=== PATIENT | female | born 2000 | race Caucasian/White ===

== ENCOUNTER 2019-04-06 13:35 | Outpatient (CLI) | payer OTHER ==
[2019-04-06 14:57] LABS: RUPTURE FETAL MEMBRANES NEGATIVE (NEGATIVE)
== END 2019-04-06 16:38 | disposition home or self-care (01) ==
LOC: OBT 13:35 → L-D 13:36 → OBT 16:38
DX: O42.92 Full-term premature rupture of membranes, unspecified as to length of time between rupture and onset of labor (principal); Z3A.38 38 weeks gestation of pregnancy
CPT/HCPCS: 76815; 76818; 84112

== ENCOUNTER 2019-04-08 15:50 | Outpatient (CLI) | payer OTHER | END 2019-04-08 17:35 | disposition home or self-care (01) | LOC: OBT 15:50 → L-D 15:50 → OBT 17:35 | DX: O62.9 Abnormality of forces of labor, unspecified (principal); Z3A.38 38 weeks gestation of pregnancy | CPT/HCPCS: 76818 ==

== ENCOUNTER 2019-04-13 17:29 | Inpatient (IN) | payer OTHER ==
[~2019-04-13 17:29] MED LIST: OXYTOCIN 30 UNITS/LR 500 ML BAG IV
[2019-04-13 18:22] LABS: ADD MAN DIFF? NO
[2019-04-13 18:24] LABS: WHITE BLOOD COUNT 12.1 10^3/ul (4.8-10.8)
[2019-04-13 18:24] LABS: BASOPHIL # 0.1 10^3/ul (0.0-0.1); BASOPHILS % 0.4 % (0.0-2.0); EOSINOPHILS # 0.1 10^3/ul (0.0-0.5); EOSINOPHILS % 0.8 % (0.0-7.0); HEMATOCRIT 40.6 % (37.0-47.0); HEMOGLOBIN 13.8 g/dl (12.0-16.0); LYMPHOCYTES # 2.4 10^3/ul (0.8-2.9); LYMPHOCYTES % 19.7 % (18.0-55.0); MEAN CORPUSCULAR HEMOGLOBIN 30.2 pg (29.0-33.0); MEAN CORPUSCULAR VOLUME 88.8 fl (72.0-104.0); MEAN PLATELET VOLUME 12.2 fl (7.4-10.4); MONOCYTE # 0.9 10^3/ul (0.3-0.9); MONOCYTES % 7.6 % (0.0-13.0); NEUTROPHIL # 8.6 10^3/ul (1.6-7.5); NEUTROPHILS % 71.1 % (30.0-74.0); PLATELET COUNT 203 10^3/UL (140-415); RED BLOOD COUNT 4.57 10^6/ul (4.20-5.40); RED CELL DISTRIBUTION WIDTH 13.1 % (11.5-14.5)
[2019-04-13] MEDS ORDERED: METHYLERGONOVINE 0.2 MG INJ IM (18:30)
[2019-04-13] MEDS ORDERED: CARBOPROST 250 MCG INJ IM (18:30)
[2019-04-13] MEDS ORDERED: OXYTOCIN 30 UNITS/LR 500 ML IV (18:30)
[2019-04-13] MEDS ORDERED: MISOPROSTOL 200 MCG TAB PR (18:30)
[2019-04-13 18:43] LABS: INR 0.89; PARTIAL THROMBOPLASTIN TIME 24.4 Sec (23.0-35.0); PROTIME 12.1 Sec (11.9-14.9); PT RATIO 0.9
[2019-04-13] MEDS: LACTATED RINGER'S 1,000 ML IV ×3 (18:47→23:23)
[2019-04-13] MEDS ORDERED: morphine SULFATE/PF (10 MG/10 ML) INJ (19:20)
[2019-04-13] MEDS ORDERED: ONDANSETRON 4 MG INJ (19:21)
[2019-04-13] MEDS ORDERED: OXYTOCIN 10 UNIT INJ (19:21)
[2019-04-13] MEDS ORDERED: GLYCOPYRROLATE 0.4 MG INJ (20:07)
[2019-04-13] MEDS ORDERED: METOCLOPRAMIDE 10 MG INJ (20:08)
[2019-04-13 20:19] LABS: RAPID PLASMA REAGIN NONREACTIVE (NR)
[2019-04-13] MEDS ORDERED: PHENYLephrine 10 MG INJ (20:19)
[2019-04-13] MEDS ORDERED: NALOXONE (0.4 MG/ML) INJ IV (20:30)
[2019-04-13] MEDS ORDERED: ONDANSETRON 4 MG INJ IV (20:30)
[2019-04-13] MEDS ORDERED: DIPHENHYDRAMINE 50 MG INJ IV (20:30)
[2019-04-13] MEDS ORDERED: morphine 2 MG INJ IV (20:30)
[2019-04-13] MEDS: KETOROLAC 30 MG INJ IV (21:17)
[2019-04-13] MEDS: CEFAZOLIN 2 GM/50 ML (PMX) 50 ML IVPB (21:24)
[2019-04-13] MEDS: OXYTOCIN 30 UNITS/LR 500 ML IV ×2 (21:24→23:36)
[2019-04-14] MEDS ORDERED: METHYLERGONOVINE 0.2 MG INJ IM
[2019-04-14] MEDS ORDERED: NACL 0.9% 3 ML SYG IV
[2019-04-14] MEDS ORDERED: CARBOPROST 250 MCG INJ IM
[2019-04-14] MEDS ORDERED: MISOPROSTOL 200 MCG TAB PR
[2019-04-14] MEDS ORDERED: OXYTOCIN 30 UNITS/LR 500 ML IV
[2019-04-14] MEDS: IBUPROFEN 600 MG TAB PO (00:34)
[2019-04-14] MEDS: CEFAZOLIN 2 GM/50 ML (PMX) 50 ML IVPB (00:34)
[2019-04-14] MEDS: LANOLIN HPA 1 PKT TOP (07:11)
[2019-04-14] MEDS: KETOROLAC 30 MG INJ IV ×3 (07:43→19:34)
[2019-04-14 08:14] LABS: ADD MAN DIFF? NO
[2019-04-14 08:16] LABS: WHITE BLOOD COUNT 10.8 10^3/ul (4.8-10.8)
[2019-04-14 08:16] LABS: BASOPHILS % 0.3 % (0.0-2.0); EOSINOPHILS # 0.1 10^3/ul (0.0-0.5); EOSINOPHILS % 0.7 % (0.0-7.0); HEMATOCRIT 31.8 % (37.0-47.0); HEMOGLOBIN 10.7 g/dl (12.0-16.0); LYMPHOCYTES # 2.2 10^3/ul (0.8-2.9); LYMPHOCYTES % 20.2 % (18.0-55.0); MEAN CORPUSCULAR HEMOGLOBIN 30.1 pg (29.0-33.0); MEAN CORPUSCULAR HGB CONC 33.6 g/dl (32.0-37.0); MEAN CORPUSCULAR VOLUME 89.3 fl (72.0-104.0); MEAN PLATELET VOLUME 12.3 fl (7.4-10.4); MONOCYTE # 0.9 10^3/ul (0.3-0.9); MONOCYTES % 7.8 % (0.0-13.0); NEUTROPHIL # 7.6 10^3/ul (1.6-7.5); NEUTROPHILS % 70.5 % (30.0-74.0); PLATELET COUNT 155 10^3/UL (140-415); RED BLOOD COUNT 3.56 10^6/ul (4.20-5.40); RED CELL DISTRIBUTION WIDTH 13.2 % (11.5-14.5)
[2019-04-14] MEDS: LACTATED RINGER'S 1,000 ML IV (09:46)
[2019-04-14] MEDS: FERROUS SULFATE (EC) 325 MG TAB PO ×2 (14:17→21:34)
[2019-04-14] MEDS ORDERED: OXYCODONE/ACETAMINOPHEN (5/325) TAB PO (19:35)
[2019-04-15] MEDS: LACTATED RINGER'S 1,000 ML IV ×3 (02:12→21:44)
[2019-04-15] MEDS: OXYCODONE/ACETAMINOPHEN (5/325) TAB PO (02:23)
[2019-04-15] MEDS: IBUPROFEN 600 MG TAB PO ×3 (06:12→17:25)
[2019-04-15] MEDS: FERROUS SULFATE (EC) 325 MG TAB PO ×2 (08:11→22:16)
[2019-04-15 08:13] LABS: ADD MAN DIFF? NO
[2019-04-15 08:21] LABS: BASOPHILS % 0.2 % (0.0-2.0); EOSINOPHILS # 0.2 10^3/ul (0.0-0.5); EOSINOPHILS % 2.2 % (0.0-7.0); HEMATOCRIT 31.5 % (37.0-47.0); HEMOGLOBIN 10.5 g/dl (12.0-16.0); LYMPHOCYTES % 19.7 % (18.0-55.0); MEAN CORPUSCULAR HEMOGLOBIN 30.3 pg (29.0-33.0); MEAN CORPUSCULAR HGB CONC 33.3 g/dl (32.0-37.0); MEAN CORPUSCULAR VOLUME 90.8 fl (72.0-104.0); MEAN PLATELET VOLUME 11.8 fl (7.4-10.4); MONOCYTE # 0.8 10^3/ul (0.3-0.9); MONOCYTES % 7.5 % (0.0-13.0); NEUTROPHIL # 7.1 10^3/ul (1.6-7.5); PLATELET COUNT 156 10^3/UL (140-415); RED BLOOD COUNT 3.47 10^6/ul (4.20-5.40); RED CELL DISTRIBUTION WIDTH 13.7 % (11.5-14.5)
[2019-04-15 08:21] LABS: WHITE BLOOD COUNT 10.2 10^3/ul (4.8-10.8)
[2019-04-15] MEDS: LANOLIN HPA 1 PKT TOP (22:32)
[2019-04-16] MEDS: IBUPROFEN 600 MG TAB PO ×4 (00:35→17:32)
[2019-04-16] MEDS: LACTATED RINGER'S 1,000 ML IV (02:12)
[2019-04-16] MEDS: FERROUS SULFATE (EC) 325 MG TAB PO (08:19)
== END 2019-04-16 18:50 | disposition home or self-care (01) | DRG 788 ==
LOC: OBT 17:29 → L-D 17:31 → PP1 22:48
PROVIDERS: Obstetrics & Gynecology
PROC: 10D00Z1 Extraction of Products of Conception, Low, Open Approach (ICD-10-PCS; principal; 2019-04-13 20:00)
DX: O35.8XX0 Maternal care for other (suspected) fetal abnormality and damage, not applicable or unspecified (principal); O36.8130 Decreased fetal movements, third trimester, not applicable or unspecified; O69.81X0 Labor and delivery complicated by cord around neck, without compression, not applicable or unspecified; Z3A.39 39 weeks gestation of pregnancy; Z37.0 Single live birth
CPT/HCPCS: 85025; 85610; 85730; 86592; 86850; 86900; 86901; 99464